=== PATIENT | male | born 1955 | race African-American/Black ===

== ENCOUNTER 2016-07-02 07:17 | Day surgery (SDC) | payer OTHER ==
[2016-07-01 14:43] VITALS: BMI 23.7
[2016-07-02] MEDS ORDERED: PROPOFOL 20 ML ONE ×2 (08:43→09:36)
[2016-07-02 09:37] VITALS: TEMP 97.4
[2016-07-02 10:32] VITALS: BP 110/60; PULSE 55
--- NOTE | 2016-07-03 14:43 | PATH ---
Surgical Pathology Report Patient Name: [facility]. Rec. #: [id number] /Age/Gender: 1955 (Age: 60) / M Account: [id number] Location: [facility]-ENDOSCOPY Taken: 07/02/2016 Received: 07/02/2016 Reported: 07/03/2016 Physicians: Fuad Rodriguez D.O. Specimen(s) Received TRANSVERSE COLON POLYP Clinical History Screening Colon polyp, hemorrhoids Final Diagnosis TRANSVERSE COLON, POLYP, POLYPECTOMY: TUBULAR ADENOMA. Electronically Signed Ирина Almonte M.D. Gross Description Received in formalin, labeled "transverse colon polyp" is a pink-chiu, polypoid portion of soft tissue measuring 0.4 cm. in greatest dimension. The specimen is submitted in toto in one cassette. 07/02/201607/02/2016
== END 2016-07-02 10:32 | disposition home or self-care (01) ==
LOC: JASU-ENDO 07:17
PROVIDERS: ATTEND Internal Medicine Gastroenterology
PROC: 0DBL8ZX Excision of Transverse Colon, Via Natural or Artificial Opening Endoscopic, Diagnostic (ICD-10-PCS; principal; 2016-07-02 09:00)
DX: Z12.11 Encounter for screening for malignant neoplasm of colon (principal); D12.3 Benign neoplasm of transverse colon; K64.8 Other hemorrhoids
CPT/HCPCS: 88305-TC

== ENCOUNTER 2016-12-29 13:44 | Emergency (ER) | payer OTHER ==
[2016-12-29 13:49] VITALS: BP 106/69; PULSE 61; TEMP 98.4; BMI 23.1
--- NOTE | 2016-12-29 15:23 | PDOC ---
History of Present Illness - History of Present Illness Initial Comments: 12/29/16 15:26 The patient is a 61 year old male with history of HIV and vertigo who presents to the ED complaining of left lower extremity "heaviness" that began yesterday. The patient states he was standing and doing laundry yesterday when he began to experience his left lower extremity heaviness and dizziness. He reports he sat down with some improvement of his symptoms. He states his symptoms subsequently returned with full intensity while climbing stairs. The patient denies nausea, vomiting, or diarrhea. He denies headache or visual changes. He denies chest pain or shortness of breath. He denies fever or chills. <Kiki Martinez - Last Filed: 12/29/16 17:49> <Cj Méndez - Last Filed: 12/29/16 19:37> - General Chief Complaint: Weakness Stated Complaint: left leg weakness x 1 day Time Seen by Provider: 12/29/16 13:53 Past History <Kiki Martinez - Last Filed: 12/29/16 17:49> - Past Medical History Anemia: No Asthma: No Cancer: No Cardiac Disorders: No CVA: No COPD: No CHF: No Dementia: No Diabetes: No GI Disorders: No Disorders: No HTN: No Hypercholesterolemia: No Liver Disease: Yes (? H/O HEPATITIS) Psychiatric Problems: Yes (depression) Seizures: No Thyroid Disease: No - Surgical History Abdominal Surgery: No Appendectomy: No Cardiac Surgery: No Cholecystectomy: No Lung Surgery: No Neurologic Surgery: No Orthopedic Surgery: No - Suicide/Smoking/Psychosocial Hx Smoking History: Current every day smoker Have you smoked in the past 12 months: Yes Number of Cigarettes Smoked Daily: 5 Information on smoking cessation initiated: Yes 'Breaking Loose' booklet given: 03/11/13 Hx Alcohol Use: No Drug/Substance Use Hx: No Substance Use Type: None Hx Substance Use Treatment: No <Cj Méndez - Last Filed: 12/29/16 19:37> - Past Medical History Allergies/Adverse Reactions: Allergies Allergy/AdvReac Type Severity Reaction Status Date / Time No Known Allergies Allergy Verified 12/29/16 13:45 Home Medications: Ambulatory Orders Citalopram Hydrobromide [Celexa -] 20 mg PO HS 07/01/16 Emtricita/Rilpivirine/Tenof Df [Complera Tablet] 1 each PO HS 07/01/16 Review of Systems - Review of Systems Able to Perform ROS?: Yes Comments:: 12/29/16 15:28 GENERAL/CONSTITUTIONAL: No fever or chills. No weakness. HEAD, EYES, EARS, NOSE AND THROAT: No change in vision. No ear pain or discharge. No sore throat. CARDIOVASCULAR: No chest pain or shortness of breath. RESPIRATORY: No cough, wheezing, or hemoptysis. GASTROINTESTINAL: No nausea, vomiting, diarrhea or constipation. GENITOURINARY: No dysuria, frequency, or change in urination. MUSCULOSKELETAL: No joint or muscle swelling or pain. No neck or back pain. SKIN: No rash NEUROLOGIC: +LLE "heaviness", dizziness. No headache or loss of consciousness. ENDOCRINE: No increased thirst. No abnormal weight change. HEMATOLOGIC/LYMPHATIC: No anemia, easy bleeding, or history of blood clots. ALLERGIC/IMMUNOLOGIC: No hives or skin allergy. <Kiki Martinez - Last Filed: 12/29/16 17:49> *Physical Exam - Vital Signs Last Vital Signs Temp Pulse Resp BP Pulse Ox 98.4 F 61 18 106/69 99 12/29/16 13:45 12/29/16 13:45 12/29/16 13:45 12/29/16 13:45 12/29/16 13:45 - Physical Exam Comments: 12/29/16 17:50 GENERAL: Awake, alert, and fully oriented, in no acute distress HEAD: No signs of trauma EYES: PERRLA, EOMI, sclera anicteric, conjunctiva clear ENT: Auricles normal inspection, hearing grossly normal, nares patent, oropharynx clear without exudates. Moist mucosa NECK: Normal ROM, supple, no lymphadenopathy, JVD, or masses LUNGS: Breath sounds equal, clear to auscultation bilaterally. No wheezes, and no crackles HEART: Regular rate and rhythm, normal S1 and S2, no murmurs, rubs or gallops ABDOMEN: Soft, nontender, normoactive bowel sounds. No guarding, no rebound. No masses EXTREMITIES: Normal range of motion, no edema. No clubbing or cyanosis. No cords, erythema, or tenderness BACK: No point tenderness to the lumbar spine. NEUROLOGICAL: Cranial nerves II through XII grossly intact. Normal speech, normal gait without discomfort. MS 5/5 x 4 extremities. No gross sensory deficits. SKIN: Warm, Dry, normal turgor, no rashes or lesions noted. <Kiki Martinez - Last Filed: 12/29/16 17:49> - Vital Signs Last Vital Signs Temp Pulse Resp BP Pulse Ox 98.4 F 61 18 106/69 99 12/29/16 13:45 12/29/16 13:45 12/29/16 13:45 12/29/16 13:45 12/29/16 13:45 <Cj Méndez - Last Filed: 12/29/16 19:37> Medical Decision Making - Medical Decision Making 12/29/16 19:35 Patient's physical exam including detailed neurological was negative. He is asymptomatic at present. Fully ambulatory with no focal deficits and strength full and symmetric. Suspect possible nerve compression syndrome involving the sciatic nerve. Recommended anti-inflammatory medication, rest, and follow-up with his primary physician, with whom he has an appointment next week. Return to ER if his recur for further evaluation. Discharge fully ambulatory with his , and no pain or other distress to follow-up as directed <Cj Méndez - Last Filed: 12/29/16 19:37> *DC/Admit/Observation/Transfer - Attestations Scribe Attestion: 12/29/16 15:29 Documentation prepared by Kiki Martinez, acting as certified medical asst for Cj Méndez MD. <Kiki Martinez - Last Filed: 12/29/16 17:49> - Discharge Dispostion Admit: No <Cj Méndez - Last Filed: 12/29/16 19:37> Diagnosis at time of Disposition: Lumbar disc disease - Discharge Dispostion Disposition: HOME Condition at time of disposition: Fair - Referrals Referrals: Hermes Puckett MD [Staff Physician] - 1 week - Patient Instructions Additional Instructions: Rest. Avoid bending and lifting or lying on the left side If symptoms persist more than a few minutes, return to the emergency room for further evaluation. Otherwise see her primary physician as scheduled.
--- NOTE | 2017-01-01 16:43 | EKG ---
Test Reason : Blood Pressure : / mmHG Vent. Rate : 056 BPM Atrial Rate : 056 BPM P-R Int : 118 ms QRS Dur : 084 ms QT Int : 442 ms P-R-T Axes : 058 -06 023 degrees QTc Int : 426 ms SINUS BRADYCARDIA NONSPECIFIC ST ABNORMALITY NO PREVIOUS ECGS AVAILABLE Confirmed by MD MURILLO MARJORY ([id number]) on 01/01/2017 4:43:33 PM Referred By: VIRI TERESA Confirmed By:JED MURILLO MD
== END 2016-12-29 15:27 | disposition home or self-care (01) ==
LOC: FER 13:44
DX: M51.9 Unspecified thoracic, thoracolumbar and lumbosacral intervertebral disc disorder (principal); K75.9 Inflammatory liver disease, unspecified; F32.9 Major depressive disorder, single episode, unspecified
CPT/HCPCS: 93005; 99282-25

== ENCOUNTER 2021-11-20 13:33 | Emergency (ER) | payer OTHER ==
[2021-11-20 13:37] VITALS: BP 136/79; PULSE 80; RESP 18; TEMP 98.3; BMI 24.7
[2021-11-20 15:53] LABS: BASO % 0.7 % (0-2.0); EOS % 1.8 % (0-4.5); HEMATOCRIT 40.7 % (35.4-49); HEMOGLOBIN 13.6 GM/dL (11.7-16.9); LYMPH % 36.3 % (8-40); MCHC 33.4 g/dl (32.0-35.9); MEAN CELL VOLUME 86.8 fl (80-96); MEAN PLT VOLUME 8.2 fl (7.5-11.1); MONO % 6.2 % (3.8-10.2); PLATELET COUNT 229 10^3/uL (134-434); RBC 4.69 M/mm3 (4.00-5.60); RDW 14.4 % (11.9-15.9); WHITE BLOOD COUNT 7.3 K/mm3 (4.0-10.0)
[2021-11-20 16:15] LABS: ALBUMIN 4.3 g/dl (3.4-5.0); CALCIUM 9.4 mg/dL (8.5-10.1)
[2021-11-20 16:16] LABS: BLOOD UREA NITROGEN 15.8 mg/dL (7-18)
[2021-11-20 16:18] LABS: CREATININE 1.1 mg/dL (0.55-1.3)
[2021-11-20 16:20] LABS: BILIRUBIN,TOTAL 0.6 mg/dL (0.2-1); TOT PROT 7.9 g/dl (6.4-8.2)
[2021-11-20 16:24] LABS: EPI CELLS 6 /uL (0-25.1); HYALINE CASTS 20 /uL (0-3.1); PH,URINE 6.5 (5.0-8.0); URINE APPEARANCE CLOUDY; URINE BACTERIA 1965 /uL (0-1359); URINE BILIRUBIN NEGATIVE (NEGATIVE); URINE COLOR YELLOW; URINE GLUCOSE (UA) NEGATIVE (NEGATIVE); URINE KETONE NEGATIVE (NEGATIVE); URINE LEUK ESTERASE 2+ (NEGATIVE); URINE NITRITE NEGATIVE (NEGATIVE); URINE PROTEIN 1+ (NEGATIVE); URINE RBC 47 /uL (0-23.9); URINE UROBILINOGEN 0.2 mg/dL (0.2-1.0); URINE WBC 503 /uL (0-25.8)
[2021-11-20] MEDS ORDERED: SULFAMETHOXAZOLE/TRIMETHOPRIM 800MG/160MG D.S. TABLET PO ONE (16:36)
[2021-11-20] MEDS ORDERED: SULFAMETHOXAZOLE/TRIMETHOPRIM 800MG/160MG D.S. TABLET ONE (16:50)
[2021-11-20 22:00] LABS: URINE CRYSTALS NONE SEEN /hpf
== END 2021-11-20 16:57 | disposition home or self-care (01) ==
LOC: JER 13:33
DX: R35.0 Frequency of micturition (principal); N39.0 Urinary tract infection, site not specified
CPT/HCPCS: 36415; 80053; 81003; 85025; 87086; 87186; 99283-25